=== PATIENT | male | born 1985 | race Asian ===

== ENCOUNTER 2018-02-12 20:16 | Emergency (ER) | payer BC, OTHER ==
[~2018-02-12] VITALS: Ht 170.2 cm; Wt 77.5 kg
[2018-02-12 20:58] LABS: MICROSCOPIC AUTO
[2018-02-12 21:00] LABS: CULTURE INDICATED? NO
[2018-02-12 21:05] VITALS: BP 136/70
== END 2018-02-12 21:49 | disposition home or self-care (01) ==
LOC: ED 21:40
DX: G89.29 Other chronic pain (principal); R10.2 Pelvic and perineal pain; R30.0 Dysuria; M54.9 Dorsalgia, unspecified
CPT/HCPCS: 81001; 87491; 87591; 99284